=== PATIENT | female | born 1975 | race Two or more races ===

== ENCOUNTER 2023-05-19 23:34 | Emergency (ER) | payer SELFPAY ==
[~2023-05-19] VITALS: Ht 160 cm; Wt 66.8 kg
[2023-05-20] MEDS ORDERED: MORPHINE SULFATE INJ 2 MG/ml SYRG IM ONE (05:00)
[2023-05-20] MEDS ORDERED: ONDANSETRON ODT 4 MG TAB PO ONE (05:00)
[2023-05-20 09:46] VITALS: BP 111/77; PULSE 67; RESP 17; TEMP 97.7; O2SAT 98
== END 2023-05-20 10:40 | disposition short-term general hospital (02) ==
LOC: ER 23:34 → EDBD 23:34 → ER 05-20 10:40
DX: S82.55XA Nondisplaced fracture of medial malleolus of left tibia, initial encounter for closed fracture (principal); S13.9XXA Sprain of joints and ligaments of unspecified parts of neck, initial encounter; S43.402A Unspecified sprain of left shoulder joint, initial encounter; S43.401A Unspecified sprain of right shoulder joint, initial encounter; S63.502A Unspecified sprain of left wrist, initial encounter; S63.501A Unspecified sprain of right wrist, initial encounter; S00.03XA Contusion of scalp, initial encounter; Y04.8XXA Assault by other bodily force, initial encounter; Y93.89 Activity, other specified; Y92.89 Other specified places as the place of occurrence of the external cause; Y99.8 Other external cause status
CPT/HCPCS: 70450; 70486; 72125; 73030; 73100; 73600; 96372; 99285; J2270; Q0162